=== PATIENT | male | born 1950 | race Caucasian/White ===

== ENCOUNTER 2020-08-24 15:52 | Outpatient (CLI) | payer BC, OTHER, SELFPAY ==
--- NOTE | ~2020-08-24 | CT_ITS ---
EXAMINATION: CT LE LT wo con DATE: 08/24/2020 16:41 INDICATION: Unilateral primary osteoarthritis of the left knee with left knee pain TECHNIQUE: High resolution computed tomography (CT) of the left lower limb from the hip through the f oot was performed without intravenous contrast. Automated exposure control and iterative reconstructi on technique were employed. Automated exposure control and iterative reconstruction technique were em ployed. The dose-length product was 1731.80 mGy-cm. COMPARISON: None FINDINGS: Alignment is normal. No fractures. Mild osteoarthritis at the left hip with small marginal osteophyte s about the acetabulum. No left hip joint effusion. Small bone island at the left femoral head. There is moderate joint space narrowing without weightbearing at the medial compartment of the left knee. There appears to be early remodeling along the medial side of the medial tibial plateau and at the me dial side of the anterior to central weightbearing medial femoral condyle with associated subarticula r sclerosis and mild cystic changes suggesting a greater degree of joint space narrowing and apparent . Additional osteoarthritis with small to moderate-sized marginal osteophytes in the lateral and pinon llofemoral compartments with additional mild joint space narrowing at the patellofemoral compartment. Small left knee joint effusion. Subcutaneous varicosities along the medial aspect of the distal thig h, knee and calf. Additional mild polyarticular osteoarthritis at the left foot and ankle. There are cystic change at the posterior medial aspect of the lateral malleolus near the footplate of the poste rior inferior tibiofibular ligament. No ankle joint effusion. Small amount of scattered atherosclerot ic calcification is along the arteries of the left lower limb. Musculature in the left lower limb is unremarkable. No pathologically enlarged left pelvic or inguinal lymphadenopathy. IMPRESSION: 1. Severe medial compartment predominant tricompartmental osteoarthritis at the left knee. Reviewed, dictated and finalized at location A.
[2020-08-24 16:32] LABS: Hematocrit 44.4 % (42.0-52.0); Hemoglobin 15.4 g/dL (14.0-18.0)
[2020-08-24 16:50] LABS: Albumin Level 4.3 g/dL (3.5-5.1); Creatine Kinase 185 U/L (55-170); Glucose 99 mg/dL (75-110)
[2020-08-24 17:25] LABS: Urine Cotinine NEGATIVE
[2020-08-24 18:17] LABS: Hemoglobin A1C 6.2 % (<5.7)
[2020-08-25 11:32] LABS: Estimated Glomerular Filt Rate > 60
== END 2020-08-24 15:53 | disposition home or self-care (01) ==
LOC: ANHIMG 15:54
PROVIDERS: PCP Student in an Organized Health Care Education/Training Program; Visit Provider Orthopaedic Surgery
DX: M17.12 Unilateral primary osteoarthritis, left knee (principal); Z01.818 Encounter for other preprocedural examination
CPT/HCPCS: 73700; 80307; 82040; 82550; 82565; 82947; 83036; 85014; 85018

== ENCOUNTER 2020-10-02 11:13 | Outpatient (CLI) | payer BC, OTHER, SELFPAY ==
--- NOTE | 2020-10-02 12:37 | ECG_ITS ---
Measurements Intervals [place] Rate: 54 P: 38 ND: 148 QRS: 31 QRSD: 97 T: 11 QT: 386 QTc: 369 Interpretive Statements SINUS BRADYCARDIA DELAYED PRECORDIAL R/S TRANSITION BORDERLINE ECG Electronically Signed On 10-02-2020 12:51:22 CDT by Pavan Shaffer D.O.
[2020-10-02 12:54] LABS: Basophils Absolute Auto 0.1 K/mm3 (0.0-0.1); Basophils Percent Auto 0.5 % (0.2-1.2); Eosinophils Absolute Auto 0.4 K/mm3 (0-0.3); Eosinophils Percent Auto 3.6 % (0-4.4); Hematocrit 46.6 % (42.0-52.0); Hemoglobin 15.8 g/dL (14.0-18.0); Immature Granulocyte Absolute 0.14 K/mm3 (0.00-0.031); Immature Granulocyte Percent A 1.4 % (0-0.5); Lymphocytes Absolute Auto 2.16 K/mm3 (0.9-3.2); Lymphocytes Percent Auto 21.1 % (18.3-44.2); Mean Corpuscular HGB Conc 33.9 g/dl (32-36); Mean Corpuscular Volume 94.3 fl (80-100); Mean Platelet Volume 10.1 fl (7.4-10.4); Monocytes Absolute Auto 0.8 K/mm3 (0.1-0.6); Monocytes Percent Auto 7.3 % (2.6-8.5); Neutrophils Absolute Auto 6.8 K/mm3 (1.3-6.7); Neutrophils Percent Auto 66.1 % (45.5-73.1); Platelet Count Result 196 k/mm3 (150-375); Red Blood Count 4.94 M/mm3 (4.6-6.20); White Blood Count 10.3 K/mm3 (4.5-10.0)
== END 2020-10-02 11:14 | disposition home or self-care (01) ==
LOC: ANHSURGERY 11:18
PROVIDERS: PCP Student in an Organized Health Care Education/Training Program; Visit Provider Orthopaedic Surgery
DX: M17.12 Unilateral primary osteoarthritis, left knee (principal); Z01.818 Encounter for other preprocedural examination; R94.31 Abnormal electrocardiogram [ECG] [EKG]
CPT/HCPCS: 36415; 85025; 87081; 93005

== ENCOUNTER 2020-10-19 00:04 | Day surgery (SDC) | payer BC, OTHER, SELFPAY ==
[2020-10-02 11:53] VITALS: BP 155/82; PULSE 86; RESP 18; TEMP 36.6; O2SAT 95; BMI 33.0
[2020-10-19] VITALS (14 sets, daily range): BP systolic 78–138; BP diastolic 47–81; PULSE 82–103; RESP 10–20; TEMP 35.6–36.9; O2SAT 92–97
--- NOTE | ~2020-10-19 | XR_ITS ---
EXAMINATION: XR knee LT 2V DATE: 10/19/2020 11:08 INDICATION: Postoperative evaluation following left total knee arthroplasty. TECHNIQUE: Anteroposterior and lateral views of the left knee were obtained. COMPARISON: 12/04/2016 FINDINGS: Left total knee arthroplasty with patellar resurfacing appears well seated and in near anatomic align ment. Again seen is a normal variant bipartite patella with small superolateral accessory apophyseal center No fractures identified. Expected postoperative subcutaneous and intra-articular gas. IMPRESSION: 1. Left total knee arthroplasty, negative for postoperative purposes. Reviewed, dictated and finalized at location A.
[2020-10-19] MEDS: ACETAMINOPHEN 500 MG TABLET 1000 MG PO (06:24)
[2020-10-19] MEDS: LACTATED RINGERS 1,000 ML 30 ML IV CONT ×3 (06:30→11:19)
[2020-10-19] MEDS: TRANEXAMIC ACID 1,000MG/ISO100 1,000 MG/100 ML BAG 200 MG IVPB (06:35)
--- NOTE | 2020-10-19 07:03 | P.PNAN_ITS ---
Anes - Initial Pre Proc Eval Procedure: Operation Date: 10/19/20 07:30 Proposed Procedures p Left Custom Total Knee Arthroplasty - Khalif Del Valle MD Date/Time: 10/19/20 07:03 Surgeon: Khalif Del Valle MD Pre Op Diagnosis: primary OA left knee Patient Data Age: 70 Gender: M Height: 1.68 m Weight: 92.8 kg Last Vital Signs Temp 36.6 C 10/02/20 11:53 Pulse 86 10/02/20 11:53 Resp 18 10/02/20 11:53 BP 155/82 H 10/02/20 11:53 Pulse Ox 95 10/02/20 11:53 Allergies Allergy/AdvReac Type Severity Reaction Status Date / Time No Known Allergies Allergy Verified 10/19/20 06:05 Home Medications Medication Instructions Recorded Confirmed Type alpha lipoic acid 600 mg capsule 600 mg PO DAILY 04/27/20 10/19/20 History rosuvastatin 5 mg tablet 5 mg PO DAILY 04/27/20 10/19/20 History turmeric root extract 500 mg 500 mg PO DAILY 04/27/20 10/19/20 History capsule cholecalciferol (vitamin D3) 25 50 mcg PO BID 10/02/20 10/19/20 History mcg (1,000 unit) capsule meloxicam 7.5 mg PO BID 10/02/20 10/19/20 History Patient hx anesthesia problems: none Family hx anesthesia problems: none [facility] Past Medical History Medical History (Updated 10/19/20 @ 07:03 by Bimal Burt MD) Hyperlipidemia Surgical History Surgical History (Updated 10/19/20 @ 07:03 by Bimal Burt MD) H/O inguinal hernia repair History of elbow surgery Family History Family History Father Diabetes mellitus Mother Pancreatic cancer Social History Social History Smoking status: Never smoker Substance use: never Living arrangements: alone Spiritual care concerns: No Anes - Eval Final PreProcedure Day of Procedure 10/19/20 07:03 Patient weight: obese Heart: regular rate and rhythm Lungs: clear to auscultation Airway: Mallampati scale class II Neurological: alert and oriented Last oral intake: >/= 8 hours ASA classification: II Emergent: no Anesthetic plan: proceed Anesthesia type and monitoring: general LMA and standard monitoring Informed Consent: The patient's anesthetic plan and its attendant risks and benefits were discussed with the patient/family/POA. Questions were solicited and answers provided to the satisfaction of the patient/family/POA.
--- NOTE | 2020-10-19 07:24 | WPDHPUPDATE1 ---
History and Physical Update Update Date/Time: 10/19/20 07:24 History and Physical has been reviewed, including an updated exam of the patient. There are NO changes in the patient's condition. Risks, benefits, and alternatives have been discussed and questions answered. Patient agrees to proceed with procedure.
--- NOTE | 2020-10-19 07:27 | WPDANESPNB ---
Anes - Peripheral Nerve Block Date/Time: 10/19/20 07:27 I have discussed with the patient/family/POA the placement of a peripheral nerve block for post-operative pain management, including associated risks, benefits, complications, and side effects. Alternative methods of post-operative analgesia were detailed. Questions were solicited and answers provided to the satisfaction of the patient/family/POA. Time-Out: A pre-procedural Time-Out was completed immediately before starting the procedure and confirmed: Patient Identification, Site, Procedure, Patient Position and the Availability of Requisite Equipment. Clinical Indications: Acute post-operative pain management requested by the operative surgeon. Nerve Block Insertion Note Anes-nerve block: adductor canal left Patient position: supine Skin prep: chlorhexidine Needle: 22 gauge, stimulating, insulated echogenic needle. Needle length: 80 mm Technique: ultrasound Injectate: bupivacaine 0.5% with epi 5 mcg/ml (30) and dexamethasone (mg) (8) Observations: tolerated well Complications: none Procedure start time:: 720 Procedure end time:: 726
--- NOTE | 2020-10-19 12:00 | PC.NURSE ---
This patient, Elver Stewart, was admitted to Medical Room 253-01. Patient/family oriented to hospital policies and general routines including ID bracelet, bed and alarms, visiting hours, pain management, procedures, bathroom and other care routines, personal items, smoking policy, room service/diet, and visiting hours. Information on how to activate the Rapid Response Team has been discussed. Patient/Family are encouraged to report perceived risks to care and to ask questions if they do not understand what they are told or what they should do.
[2020-10-19] MEDS: oxyCODONE HCL (*CRX) 5 MG TAB IR PO ×2 (13:23→16:24)
[2020-10-19] MEDS: ONDANSETRON INJ 4 MG/2 ML VIAL IV PUSH (13:42)
--- NOTE | 2020-10-19 16:23 | W.PM.PROC2 ---
Procedure Note - Detailed Date of Procedure 10/19/20 Pre-op Diagnosis primary OA left knee Post-op Diagnosis same Procedure Performed Total knee arthroplasty, left knee Surgeon Khalif Del Valle MD Information Technology Advisor Jeanie Begum PA-C Anesthesia general Description of Procedure Physician clinic office assistant, Jeanie Begum PA-C, required for surgery; including patient positioning, draping, tissue retraction, maintaining instrument position, cement removal, wound closure, and dressing placement. The patient was given a general anesthetic. Preoperative antibiotics were given. The limb was prepped and draped in the usual sterile fashion with a well-padded tourniquet high on the thigh. The limb was exsanguinated and the tourniquet inflated to 300 mmHg. A longitudinal incision was created just medial to the patella. A trivector approach to the knee was performed. Arthrotomy was taken down through the joint capsule. No significant releases were initially taken. The femur was exposed and the F1 jig was applied. The coring tool was used to remove the cartilage for the F2 jig to sit flush with the bone. The jig was pinned and the distal cut carefully taken. Caliper measurements confirmed appropriate bony resections according to the preoperative templated plan. The tibia was cut using the jig after removing cartilage for the Justice to sit. Proper alignment was checked with the alignment andrei. The tibia was cut through the jig. Gap balancing was performed. Cut was lightly refresh and anteromedially. Four in 1 cutting jig for the femur was applied. The anterior and chamfer cut was taken. The posterior chain for Mariama was then applied. Posterior chamber cuts were taken. Gap measurements were taken and the knee was trialed. Excellent alignment and soft tissue balancing was confirmed. Posterior cruciate ligament was recessed along the proximal tibia. Lateral retinacular release was required due to significant arthrofibrosis. Patellar tracking was excellent. The patella was cut for resurfacing. Three lug drills were drilled. Meniscal remnants were removed. Knee was copiously irrigated periodically throughout the procedure. The real implants were cemented into position. Excess cement was carefully removed. After final trialing, the real tibial inserts were placed. The wound was closed in layers with interrupted 1. Vicryl suture, 2-0 strata fix suture, 0 strata fix suture, 2-0 strata fix suture. Steri-Strips placed on the skin with the knee flexed. Sterile bulky dressing applied. The patient was brought to the recovery room in stable condition. There were no complications. Implants Conformis custom total knee. Estimated Blood Loss -200.0 Drains No Complications No immediate complications Condition stable Disposition PACU
[2020-10-19] MEDS: ASPIRIN 81 MG ENTERIC TABLET PO (16:25)
[2020-10-19] MEDS: MELOXICAM 7.5 MG TABLET PO (16:25)
[2020-10-19] MEDS: CHOLECALCIFEROL 1,000 UNITS TABLET 2000 UNITS PO (16:25)
[2020-10-19] MEDS: ceFAZolin 2 GM/D5W 50 ML 2 GM/50 ML BAG IVPB (16:26)
[2020-10-19] MEDS: SENNOSIDES 8.6 MG TABLET 17.2 MG PO (21:18)
[2020-10-19] MEDS: FAMOTIDINE 20 MG TABLET PO (21:19)
[2020-10-20] MEDS: ceFAZolin 2 GM/D5W 50 ML 2 GM/50 ML BAG IVPB ×2 (00:01→08:05)
[2020-10-20 01:42] VITALS: BP 117/61; PULSE 82; RESP 18; TEMP 37.3; O2SAT 95
[2020-10-20] MEDS: oxyCODONE HCL (*CRX) 5 MG TAB IR 10 MG PO (03:42)
[2020-10-20 05:09] VITALS: BP 118/51; PULSE 72; RESP 16; TEMP 36.3; O2SAT 97
[2020-10-20 06:20] LABS: Basophils Percent Auto 0.1 % (0.2-1.2); Hematocrit 38.8 % (42.0-52.0); Hemoglobin 13.1 g/dL (14.0-18.0); Immature Granulocyte Absolute 0.14 K/mm3 (0.00-0.031); Immature Granulocyte Percent A 0.7 % (0-0.5); Lymphocytes Percent Auto 5.4 % (18.3-44.2); Mean Corpuscular HGB Conc 33.8 g/dl (32-36); Mean Corpuscular Hemoglobin 32.7 pg (26-34); Mean Corpuscular Volume 96.8 fl (80-100); Mean Platelet Volume 10.8 fl (7.4-10.4); Monocytes Absolute Auto 1.4 K/mm3 (0.1-0.6); Neutrophils Absolute Auto 17.6 K/mm3 (1.3-6.7); Neutrophils Percent Auto 86.8 % (45.5-73.1); Platelet Count Result 177 k/mm3 (150-375); Red Blood Count 4.01 M/mm3 (4.6-6.20); Red Cell Distribution Width 11.9 % (11.5-14.5); White Blood Count 20.3 K/mm3 (4.5-10.0)
[2020-10-20 06:36] LABS: Anion Gap 6 mmol/L (8-16); Blood Urea Nitrogen 20 mg/dL (9-20); Calcium 8.6 mg/dL (8.4-10.2); Carbon Dioxide 23 mmol/L (22-30); Chloride 105 mmol/L (98-107); Estimated CRCL calculation 81 ml/min; Estimated Glomerular Filt Rate > 60; Glucose 124 mg/dL (75-110); Potassium 4.2 mmol/L (3.4-5.0); Sodium 134 mmol/L (137-145)
[2020-10-20] MEDS: oxyCODONE HCL (*CRX) 5 MG TAB IR PO (06:54)
[2020-10-20 08:04] VITALS: RESP 16; O2SAT 97
[2020-10-20] MEDS: CHOLECALCIFEROL 1,000 UNITS TABLET 2000 UNITS PO (08:04)
[2020-10-20] MEDS: ASPIRIN 81 MG ENTERIC TABLET PO (08:04)
[2020-10-20] MEDS: FAMOTIDINE 20 MG TABLET PO (08:04)
[2020-10-20] MEDS: MELOXICAM 7.5 MG TABLET PO (08:04)
--- NOTE | 2020-10-20 08:08 | P.PNAN_ITS ---
Anes - Prog Note Post-Op Date/Time: 10/20/20 08:08 Cardiovascular status: normal Respiratory status: normal Airway patency: baseline Mental status: baseline Post-Op hydration status: normal Vital Signs: Last Vital Signs Temp 97.3 F L 10/20/20 05:09 Pulse 72 10/20/20 05:09 Resp 16 10/20/20 05:09 BP 118/51 L 10/20/20 05:09 Pulse Ox 97 10/20/20 05:09 Pain Score (VAS): 6 I/O: Intake & Output 10/19/20 10/20/20 10/20/20 23:59 07:59 15:59 Intake Total 150 150 Output Total 250 500 Balance -100 -350 Laboratory Tests 10/20/20 05:18 10/20/20 05:18 10/19/20 10/20/20 10/20/20 06:26 05:18 05:18 WBC 20.3 H RBC 4.01 L Hgb 13.1 L Hct 38.8 L MCV 96.8 MCH 32.7 MCHC 33.8 RDW 11.9 Plt Count 177 MPV 10.8 H Immature Gran % (Auto) 0.7 H Neut % (Auto) 86.8 H Lymph % (Auto) 5.4 L [place] % (Auto) 7.0 Eos % (Auto) 0.0 Baso % (Auto) 0.1 L Lymph # (Auto) 1.10 [place] # (Auto) 1.4 H Eos # (Auto) 0.0 Baso # (Auto) 0.0 Abs Immat Gran (auto) 0.14 H Absolute Neuts (auto) 17.6 H Absolute Nucleated RBC 0.0 Nucleated RBC % 0.0 Sodium 134 L Potassium 4.2 Chloride 105 Carbon Dioxide 23 Anion Gap 6 L BUN 20 Creatinine 0.80 Estim Creat Clear Calc 81 Estimated GFR > 60 Glucose 124 H Calcium 8.6 Blood Type A Positive Antibody Screen Negative Post-procedural complaints: none Patient Feedback: Patient satisfied with anesthetic care. Other Findings: pt states peripheral nerve block seemed to wear off early this morning. pain to patellar region rated 6/10. states he received oral pain medication and pain has since disippated to what it was when he still had the block. pt states pain management adequate
--- NOTE | 2020-10-20 08:23 | PM.DS ---
DS: Admitting Diagnosis Admitting Diagnosis Admitting Diagnosis: OA knee Left DS: Discharge Diagnosis Discharge Diagnosis (1) Status post total left knee replacement: Code(s): Z96.652 - Presence of left artificial knee joint Status: Acute Assessment and Plan: Postop day 1: Left total knee arthroplasty. Patient tolerated procedure well. No complications. Pain manageable with pain medication. No numbness or tingling. We had a lengthy discussion regarding postoperative wound care, limitations, expectations, and exercises. Patient shows good understanding. He has had initial physical therapy and is tolerating it well. DVT prophylaxis: 81 mg baby aspirin b.i.d. for 14 days. Pain medication: Percocet. Patient has followup appointment with Dr. Del Valle in 3 weeks. DS: Summary Hospital Course Reason for hospitalization: Left Total knee arthroplasty Hospital Course: Patient tolerated procedure well. Has had initial PT/OT. Status at Discharge Functional status at discharge: uses cane/walker Overall status at discharge: patient is progressing back to baseline Time Spent with Patient Time attestation: Total time spent providing and/or coordinating discharge services: Exam Narrative: Exam Narrative: Overweight 70 y/o male. Resting comfortably in bed. Alert and oriented x3. No acute distress. Wearing compression socks bilaterally. Dressing intact with no drainage. Moderate swelling. No ecchymosis. No erythema. No hematoma. Range of motion limited due to pain. Calf nontender. Neurologic status intact. No varicosities. Distal pulses palpable. DS: Data Data Completed and Pending Labs on day of discharge: Labs from last 24 hours 10/20/20 10/20/20 10/19/20 05:18 05:18 06:26 WBC 20.3 H RBC 4.01 L Hgb 13.1 L Hct 38.8 L MCV 96.8 MCH 32.7 MCHC 33.8 RDW 11.9 Plt Count 177 MPV 10.8 H Immature Gran % (Auto) 0.7 H Neut % (Auto) 86.8 H Lymph % (Auto) 5.4 L [place] % (Auto) 7.0 Eos % (Auto) 0.0 Baso % (Auto) 0.1 L Lymph # (Auto) 1.10 [place] # (Auto) 1.4 H Eos # (Auto) 0.0 Baso # (Auto) 0.0 Abs Immat Gran (auto) 0.14 H Absolute Neuts (auto) 17.6 H Absolute Nucleated RBC 0.0 Nucleated RBC % 0.0 Sodium 134 L Potassium 4.2 Chloride 105 Carbon Dioxide 23 Anion Gap 6 L BUN 20 Creatinine 0.80 Estim Creat Clear Calc 81 Estimated GFR > 60 Glucose 124 H Calcium 8.6 Blood Type A Positive Antibody Screen Negative Discharge Plan Discharge Patient Disposition: Home, Self-Care Discharge Instructions: See blue instruction sheet Follow-up/Referrals: Jeanie Begum PA [Physician [employer]] - Discharge Medications: New aspirin 81 mg tablet,delayed release (DR/EC) 81 mg PO BID 14 Days Qty: 28 RF: 0 oxycodone-acetaminophen 5-325 mg tablet 1 - 2 tablet PO Q4-6H MDD 6 PRN (Reason: pain) Qty: 30 RF: 0 Continued alpha lipoic acid 600 mg capsule 600 mg PO DAILY RF: 0 turmeric root extract 500 mg capsule 500 mg PO DAILY RF: 0 rosuvastatin 5 mg tablet 5 mg PO DAILY RF: 0 cholecalciferol (vitamin D3) 25 mcg (1,000 unit) capsule 50 mcg PO BID RF: 0 meloxicam 15 mg tablet 7.5 mg PO BID RF: 0
[2020-10-20] MEDS: ROSUVASTATIN 5 MG TABLET PO (08:32)
[2020-10-20 12:06] VITALS: O2SAT 95
== END 2020-10-20 12:05 | disposition home or self-care (01) ==
LOC: ANHSURGERY 05:53 → ANH2MED 12:13
PROVIDERS: Physician Assistant Surgical; PCP Student in an Organized Health Care Education/Training Program; Visit Provider Orthopaedic Surgery
PROC: (CPT 27447; principal; 2020-10-19 07:30)
DX: M17.12 Unilateral primary osteoarthritis, left knee (principal); E78.5 Hyperlipidemia, unspecified; E66.9 Obesity, unspecified; Z68.33 Body mass index [BMI] 33.0-33.9, adult; G89.18 Other acute postprocedural pain
CPT/HCPCS: 27447; 64447; 36415; 73560; 80048; 85025; 86850; 86900; 86901; 97110; 97116; 97161; 97165; 97530; 97535; A9270; C1713; J0131; J0171; J0690; J1100; J1170; J1885; J2250; J2270; J2405; J2795; J3010; J7120

== ENCOUNTER 2021-02-27 08:11 | Outpatient (CLI) | payer BC, OTHER, MEDICARE, SELFPAY ==
--- NOTE | ~2021-02-27 | CT_ITS ---
EXAMINATION: CT LE RT wo con DATE: 02/27/2021 09:02 INDICATION: Unilateral primary osteoarthritis of right knee. TECHNIQUE: Computed tomography (CT) of the right lower limb was performed without intravenous contras t. Automated exposure control and iterative reconstruction technique were employed. The dose-length p roduct was 1786.80 mGy-cm. COMPARISON: Right knee radiographs 05/22/2020 FINDINGS: Bone alignment is normal. No fracture. There is mild right hip osteoarthritis. The patella is bipartite. There is moderate osteoarthritis of medial compartment of the knee and mild osteoarthri tis of lateral and patellofemoral compartments. There is a small knee joint effusion. There are loose bodies in the knee joint. There is a large Mohan's cyst. The prostate is moderately enlarged. IMPRESSION: 1. Moderate right knee osteoarthrosis. 2. Small right knee joint effusion with loose bodies. 3. Large right-sided Mohan's cyst. 4. Mild right hip osteoarthritis. Reviewed, dictated and finalized at location A. INE SEWER
== END 2021-02-27 08:12 | disposition home or self-care (01) ==
LOC: ANHIMG 08:19
PROVIDERS: PCP Student in an Organized Health Care Education/Training Program; Visit Provider Orthopaedic Surgery
DX: M17.11 Unilateral primary osteoarthritis, right knee (principal); M71.21 Synovial cyst of popliteal space [Baker], right knee; M16.11 Unilateral primary osteoarthritis, right hip; M25.461 Effusion, right knee
CPT/HCPCS: 73700

== ENCOUNTER 2021-04-02 09:36 | Outpatient (CLI) | payer BC, OTHER, MEDICARE, SELFPAY ==
[2021-04-02 10:26] LABS: Hematocrit 45.3 % (42.0-52.0); Hemoglobin 15.9 g/dL (14.0-18.0)
--- NOTE | 2021-04-02 10:30 | ECG_ITS ---
Measurements Intervals [place] Rate: 58 P: 57 ID: [id number] QRS: 73 QRSD: 96 T: 36 QT: 382 QTc: 378 Interpretive Statements SINUS BRADYCARDIA BORDERLINE ECG Electronically Signed On 04-02-2021 10:59:04 HHA by Pavan Shaffer D.O.
[2021-04-02 10:32] LABS: Albumin Level 4.4 g/dL (3.5-5.1); Estimated Glomerular Filt Rate > 60; Glucose 137 mg/dL (65-110)
== END 2021-04-02 09:37 | disposition home or self-care (01) ==
PROVIDERS: PCP Student in an Organized Health Care Education/Training Program; Visit Provider Orthopaedic Surgery
DX: E78.5 Hyperlipidemia, unspecified (principal); M17.11 Unilateral primary osteoarthritis, right knee; Z01.818 Encounter for other preprocedural examination; R94.31 Abnormal electrocardiogram [ECG] [EKG]
CPT/HCPCS: 36415; 82040; 82565; 82947; 85014; 85018; 93005

== ENCOUNTER 2021-05-31 08:46 | Outpatient (CLI) | payer BC, MEDICARE, OTHER, SELFPAY ==
[2021-05-31 09:48] LABS: Basophils Absolute Auto 0.1 K/mm3 (0.0-0.1); Basophils Percent Auto 0.9 % (0.2-1.2); Eosinophils Absolute Auto 0.4 K/mm3 (0-0.3); Eosinophils Percent Auto 4.5 % (0-4.4); Hematocrit 45.5 % (42.0-52.0); Hemoglobin 16.1 g/dL (14.0-18.0); Immature Granulocyte Absolute 0.08 K/mm3 (0.00-0.031); Lymphocytes Absolute Auto 1.47 K/mm3 (0.9-3.2); Lymphocytes Percent Auto 18.2 % (18.3-44.2); Mean Corpuscular HGB Conc 35.4 g/dl (32-36); Mean Corpuscular Hemoglobin 32.7 pg (26-34); Mean Corpuscular Volume 92.5 fl (80-100); Monocytes Absolute Auto 0.6 K/mm3 (0.1-0.6); Monocytes Percent Auto 6.9 % (2.6-8.5); Neutrophils Absolute Auto 5.5 K/mm3 (1.3-6.7); Neutrophils Percent Auto 68.5 % (45.5-73.1); Platelet Count Result 193 k/mm3 (150-375); Red Blood Count 4.92 M/mm3 (4.6-6.20); Red Cell Distribution Width 11.9 % (11.5-14.5); White Blood Count 8.1 K/mm3 (4.5-10.0)
[2021-05-31 09:56] LABS: Albumin Level 4.3 g/dL (3.5-5.1); Estimated Glomerular Filt Rate > 60; Glucose 161 mg/dL (65-110); Urine Cotinine NEGATIVE
[2021-05-31 10:06] LABS: Hemoglobin A1C 6.2 % (<5.7)
== END 2021-05-31 08:47 | disposition home or self-care (01) ==
LOC: ANHSURGERY 08:51
PROVIDERS: PCP Student in an Organized Health Care Education/Training Program; Visit Provider Orthopaedic Surgery
DX: M17.11 Unilateral primary osteoarthritis, right knee (principal); Z01.818 Encounter for other preprocedural examination
CPT/HCPCS: 80307; 82040; 82565; 82947; 83036; 85025; 87081

== ENCOUNTER 2021-06-20 00:23 | Day surgery (SDC) | payer BC, MEDICARE, OTHER, SELFPAY ==
--- NOTE | 2021-05-31 08:50 | PC.NURSE ---
Addendum entered by Elizabeth Prather RN 06/18/21 14:57: PT INFORMED OF DATE CHANGE FOR SURGERY - UNDERSTANDING VOICED TO ARRIVE @ 0600 ON 06/20/21 Original Note: Report to the Outpatient Waiting Room, entrance under the green pavilion located off [facility], at time _0600_ on date _06/19/21_. OR Time: _0730_. - You will be asked a series of questions to screen for COVID 19 for your protection. - A mask is required within the hospital. - No visitors are allowed at this time. Preoperative COVID Testing Requirements: Patients may have clear liquids (water, carbonated beverages, clear teas, apple juice) until 3 hours prior to surgery (0430 AM) with a maximum of 20 ounces. - No food from midnight until time of surgery Take the following medications with a SIP of water the morning of surgery: _TYLENOL IF NEED _ Medications to discontinue per DR. QUINONES - _IBUPROFEN 7 DAYS PRIOR TO SURGERY, LAST DOSE TO BE TAKEN ON 06/11/21_ Medications to discontinue per ANESTHESIA - _ ALL VITAMINS AND SUPPLEMENTS 3 DAYS PRIOR TO SURGERY, LAST DOSE TO BE TAKEN ON 06/15/21_ Please no deodorant, or body powder the day of surgery. No jewelry (including any body piercings) or valuables the day of surgery, leave them at home. Please take a shower or bath the night before, or the morning of, surgery with an antibacterial soap. Wear comfortable, loose fitting clothing. - Jewelry must be removed prior to entering the operating room. Rings and piercings that are not removed may be cut off. - The hospital will not accept responsibility for valuables. - Please leave all valuables, including medications, at home the day of surgery. If you are going home after surgery, a licensed wrecking car driver must drive you home. - NO public transportation without another adult. - We recommend that an adult stay with you for 24 hours following discharge. - We also recommend that you do not drive, make important decision, drink alcoholic beverages, or take any drugs that were not prescribed by your health care provider for at least 24 hours after your discharge time. Follow any additional instructions given to you from DR. QUINONES. Instructions given to ____PT and asked if any additional questions and then verbalized understanding. Patient advised to call surgeon office or pre surgery nurse liaisonHONG [phone] if any additional questions.
[2021-05-31 09:11] VITALS: BP 150/70; PULSE 70; RESP 20; TEMP 36.8; O2SAT 97; BMI 33.7
--- NOTE | 2021-06-18 09:32 | P.PNAN_ITS ---
Anes - Initial Pre Proc Eval Procedure: Operation Date: 06/19/21 07:30 Proposed Procedures p Conformis Custom Right Total Knee Arthroplasty - Khalif Del Valle MD Date/Time: 06/18/21 09:32 Surgeon: Khalif Del Valle MD Pre Op Diagnosis: primary oa right knee Patient Data Age: 71 Gender: M Height: 1.68 m Weight: 94.8 kg Last Vital Signs Temp 36.8 C 05/31/21 09:11 Pulse 70 05/31/21 09:11 Resp 20 05/31/21 09:11 BP 150/70 H 05/31/21 09:11 Pulse Ox 97 05/31/21 09:11 Allergies Allergy/AdvReac Type Severity Reaction Status Date / Time No Known Allergies Allergy Verified 06/20/21 06:26 Home Medications Medication Instructions Recorded Confirmed Type alpha lipoic acid 600 mg capsule 600 mg PO DAILY 04/27/20 06/20/21 History rosuvastatin 5 mg tablet 5 mg PO HS 04/27/20 06/20/21 History turmeric root extract 500 mg 500 mg PO DAILY 04/27/20 06/20/21 History capsule cholecalciferol (vitamin D3) 25 50 mcg PO BID 10/02/20 06/20/21 History mcg (1,000 unit) capsule ibuprofen 800 mg PO HS PRN 05/31/21 06/20/21 History Patient hx anesthesia problems: none Family hx anesthesia problems: none Results Review: All pre-operative results and documents have been reviewed as part of the pre-operative evaluation. [facility] Past Medical History Medical History Hyperlipidemia Surgical History Surgical History H/O inguinal hernia repair History of elbow surgery History of total left knee replacement (~10/19/20) Conformis Family History Family History Father Diabetes mellitus Mother Pancreatic cancer Social History Social History Second hand tobacco smoke exposure: No Additional smoking assessment comments: PT DENIES ALL FORMS OF TOBACCO USE Alcohol intake: unknown Alcohol use details: STATES VERY RARE - COUPLE TIMES A YEAR Substance use: never Substance use type: does not use Living arrangements: alone Gender identity (if verbalized by the patient): Male Spiritual care concerns: No Anes - Eval Final PreProcedure Day of Procedure 06/18/21 09:32 Patient weight: obese Heart: regular rate and rhythm Lungs: clear to auscultation and normal air movement Airway: Mallampati scale class II Neurological: alert and oriented Last oral intake: >/= 8 hours ASA classification: II Emergent: no Anesthetic plan: proceed Anesthesia type and monitoring: general LMA and standard monitoring Results Review: All pre-operative results and documents have been reviewed as part of the pre-operative evaluation. Informed Consent: The patient's anesthetic plan and its attendant risks and benefits were discussed with the patient/family/POA. Questions were solicited and answers provided to the satisfaction of the patient/family/POA.
--- NOTE | 2021-06-18 09:33 | WPDANESPNB ---
Anes - Peripheral Nerve Block Date/Time: 06/18/21 09:33 I have discussed with the patient/family/POA the placement of a peripheral nerve block for post-operative pain management, including associated risks, benefits, complications, and side effects. Alternative methods of post-operative analgesia were detailed. Questions were solicited and answers provided to the satisfaction of the patient/family/POA. Time-Out: A pre-procedural Time-Out was completed immediately before starting the procedure and confirmed: Patient Identification, Site, Procedure, Patient Position and the Availability of Requisite Equipment. Clinical Indications: Acute post-operative pain management requested by the operative surgeon. Nerve Block Insertion Note Anes-nerve block: adductor canal right Patient position: supine Skin prep: chlorhexidine Needle: 22 gauge, stimulating, insulated echogenic needle. Needle length: 80 mm Technique: ultrasound Injectate: bupivacaine 0.5% with epi 5 mcg/ml (30cc - no epi) Observations: tolerated well Complications: none Procedure start time:: 722 Procedure end time:: 725
[2021-06-20] VITALS (13 sets, daily range): BP systolic 84–143; BP diastolic 48–80; PULSE 71–94; RESP 14–18; TEMP 36.2–36.8; O2SAT 93–96; BMI 33.0
--- NOTE | ~2021-06-20 | XR_ITS ---
EXAMINATION: XR knee RT 2V DATE: 06/20/2021 10:22 INDICATION: Right total knee arthroplasty. Postop. TECHNIQUE: 2 views of right knee were obtained. COMPARISON: Right knee radiographs 05/22/2020. FINDINGS: There is a total right knee arthroplasty without patellar resurfacing in near-anatomic alig nment. Patellas is tripartite. No fracture. There is gas in the soft tissues, consistent with recent surgery. IMPRESSION: 1. Total right knee arthroplasty in near-anatomic alignment. Reviewed, dictated and finalized at location A. RVISOR BENZENE REFINING
[2021-06-20] MEDS: ACETAMINOPHEN 500 MG TABLET 1000 MG PO (06:38)
[2021-06-20] MEDS: LACTATED RINGERS 1,000 ML 30 ML IV CONT ×2 (06:56→10:05)
[2021-06-20] MEDS: TRANEXAMIC ACID 1,000MG/ISO100 1,000 MG/100 ML BAG 200 MG IVPB (06:56)
--- NOTE | 2021-06-20 07:19 | WPDHPUPDATE1 ---
History and Physical Update Update Date/Time: 06/20/21 07:19 History and Physical has been reviewed, including an updated exam of the patient. There are NO changes in the patient's condition. Risks, benefits, and alternatives have been discussed and questions answered. Patient agrees to proceed with procedure.
[2021-06-20] MEDS: ceFAZolin 2 GM/D5W 50 ML 2 GM/50 ML BAG IVPB ×3 (07:32→22:31)
[2021-06-20] MEDS: GENTAMICIN BONE CEMENT REFOBACIN 1 EACH TOPICAL (08:09)
--- NOTE | 2021-06-20 10:55 | W.PM.PROC2 ---
Procedure Note - Detailed Date of Procedure 06/20/21 Pre-op Diagnosis primary oa right knee Post-op Diagnosis same Procedure Performed Total knee arthroplasty, right. Surgeon Khalif Del Valle MD Administrative Program Specialist Jeanie Reid PA-C Anesthesia general and regional (Subsartorial block.) Findings Custom, cemented cruciate retaining arthroplasty. Excellent bone quality. No medial release. Description of Procedure Physician construction administrative assistant, Jeanie Reid PA-C, required for surgery; including patient positioning, draping, tissue retraction, maintaining instrument position, cement removal, wound closure, and dressing placement. Preoperative antibiotics were given. The limb was prepped and draped in the usual sterile fashion with a well-padded tourniquet high on the thigh. The limb was exsanguinated and the tourniquet inflated to 300 mmHg. A longitudinal incision was created just medial to the patella. A trivector approach to the knee was performed. Arthrotomy was taken down through the joint capsule. No significant releases were initially taken. The femur was exposed and the F1 jig was applied. The coring tool was used to remove the cartilage for the F2 jig to sit flush with the bone. The jig was pinned and the distal cut carefully taken. Caliper measurements confirmed appropriate bony resections according to the preoperative templated plan. The F4 cutting jig for the femur was applied, at the standard rotation. The AP and anterior chamfer cuts were taken. The F5 jig was applied and the posterior chamfer cuts were taken. The tibia was prepared using the T1 jig, after removing cartilage for the jig contact points. Proper alignment was checked with the alignment andrei. The tibia was cut using the T1u guide. Gap balancing was performed. Gap measurements were taken and the knee was trialed. Excellent alignment and soft tissue balancing was confirmed. The posterior cruciate ligament was recessed along the proximal tibia. Meniscal remnants were removed. The trial components were assembled. Excellent range of motion and proper soft tissue balancing were confirmed throughout the full range of motion. Patellar tracking was excellent. The knee was copiously irrigated periodically throughout the procedure. The real implants were cemented into position. Excess cement was carefully removed. The wound was closed in layers with interrupted #1 Vicryl suture, 2-0 strata fix suture, 0 strata fix suture, 2-0 strata fix suture. Steri-Strips placed on the skin with the knee flexed. Sterile bulky dressing applied. The patient was brought to the recovery room in stable condition. There were no complications. Implants Conformis Custom total knee arthroplasty. Cemented. Cruciate retaining. 7B insert. Estimated Blood Loss -100.0 Tourniquet Time 80 Drains No Complications No immediate complications Condition stable Disposition PACU
--- NOTE | 2021-06-20 11:18 | ADMGEN ---
This patient, Elver Stewart, was admitted to 2 Medical Room 242-. Patient/family oriented to hospital policies and general routines including ID bracelet, bed and alarms, visiting hours, pain management, procedures, bathroom and other care routines, personal items, smoking policy, room service/diet, and visiting hours. Information on how to activate the Rapid Response Team has been discussed. Patient/Family are encouraged to report perceived risks to care and to ask questions if they do not understand what they are told or what they should do.
[2021-06-20] MEDS: SODIUM CHLORIDE 0.9% IV 1,000 ML 125 ML IV CONT (12:20)
[2021-06-20] MEDS: polyethylene glycoL 3350 17 GM POWD.PACK PO (13:53)
[2021-06-20] MEDS: FAMOTIDINE 20 MG TABLET PO ×2 (13:53→21:38)
[2021-06-20] MEDS: ASPIRIN 81 MG ENTERIC TABLET PO (16:42)
[2021-06-20] MEDS: SENNA/DOCUSATE SODIUM TABLET 2 TAB PO (16:42)
[2021-06-20] MEDS: MELOXICAM 7.5 MG TABLET PO (16:43)
[2021-06-20] MEDS: oxyCODONE HCL (*CRX) 5 MG TAB IR PO ×2 (18:50→22:30)
[2021-06-20] MEDS: ROSUVASTATIN 5 MG TABLET PO (21:38)
[2021-06-21] MEDS: oxyCODONE HCL (*CRX) 5 MG TAB IR PO ×2 (03:06→12:09)
[2021-06-21 03:38] VITALS: BP 103/57; PULSE 68; RESP 18; TEMP 36.6; O2SAT 94
[2021-06-21] MEDS: ceFAZolin 2 GM/D5W 50 ML 2 GM/50 ML BAG IVPB (06:17)
[2021-06-21] MEDS: polyethylene glycoL 3350 17 GM POWD.PACK PO (08:02)
[2021-06-21] MEDS: ASPIRIN 81 MG ENTERIC TABLET PO (08:02)
[2021-06-21] MEDS: MELOXICAM 7.5 MG TABLET PO (08:02)
[2021-06-21] MEDS: SENNA/DOCUSATE SODIUM TABLET 2 TAB PO (08:02)
[2021-06-21] MEDS: FAMOTIDINE 20 MG TABLET PO (08:02)
[2021-06-21] MEDS: oxyCODONE HCL (*CRX) 5 MG TAB IR 10 MG PO (08:02)
[2021-06-21 09:00] VITALS: BP 124/66; PULSE 70; RESP 16; TEMP 36.8; O2SAT 96
--- NOTE | 2021-06-21 09:14 | WPDANESPN ---
Anes - Prog Note Post-Op Date/Time: 06/21/21 09:14 Cardiovascular status: normal Respiratory status: normal Airway patency: baseline Mental status: baseline Post-Op hydration status: normal Vital Signs: Last Vital Signs Temp 36.6 C 06/21/21 03:38 Pulse 68 06/21/21 03:38 Resp 18 06/21/21 03:38 BP 103/57 L 06/21/21 03:38 Pulse Ox 94 06/21/21 03:38 Pain Score (VAS): 0 I/O: Intake & Output 06/20/21 06/21/21 06/21/21 23:59 07:59 15:59 Intake Total 590 1340 240 Output Total 200 200 Balance 390 1140 240 Post-procedural complaints: none Patient Feedback: Patient satisfied with anesthetic care.
[2021-06-21 13:25] VITALS: BP 129/72; PULSE 71; RESP 18; TEMP 37.1; O2SAT 96
--- NOTE | 2021-06-21 14:30 | PC.NURSE ---
On 06/21/21, the student, [Agnel Johnson], provided care and completed [facility] documentation on this patient. I have reviewed the student's documentation and agree with the findings.
== END 2021-06-21 16:20 | disposition home or self-care (01) ==
LOC: ANHSURGERY 06:10 → ANH2MED 11:11
PROVIDERS: PCP Student in an Organized Health Care Education/Training Program; Visit Provider Orthopaedic Surgery
PROC: (CPT 27447; principal; 2021-06-20 07:30)
DX: M17.11 Unilateral primary osteoarthritis, right knee (principal); M25.561 Pain in right knee; E78.5 Hyperlipidemia, unspecified; G89.18 Other acute postprocedural pain; E66.9 Obesity, unspecified; Z68.33 Body mass index [BMI] 33.0-33.9, adult
CPT/HCPCS: 64447; 27447; 36415; 73560; 86850; 86900; 86901; 97110; 97116; 97161; 97165; 97535; A9270; C1713; C1776; J0131; J0171; J0690; J1100; J1885; J2270; J2370; J2405; J2704; J2795; J3010; J7030; J7120

== ENCOUNTER 2022-10-17 21:22 | Emergency (ER) | payer MEDICARE, OTHER, SELFPAY ==
--- NOTE | ~2022-10-17 | CT_ITS ---
Non-contrast Head CT History: Dizziness Technique: Axial non-contrast imaging of the brain was performed. Dose reduction technique was used on this scan by utilizing automated exposure control and iterative reconstruction technique. The dose -length product (DLP) was 681.00 mGy-cm. Findings: There is no evidence of intracranial hemorrhage, mass lesion, or acute infarct. Brain par enchyma appears normal. The ventricles and subarachnoid spaces are normal in size. The calvarium ap pears normal. The visualized paranasal sinuses and mastoid air cells are clear. Impression: No significant abnormality seen. Reviewed, dictated and finalized at location . Impression: No significant abnormality seen.
[2022-10-17 21:22] VITALS: BP 128/88; PULSE 118; RESP 12; TEMP 36.7; O2SAT 98
--- NOTE | 2022-10-17 21:30 | ECG_ITS ---
Measurements Intervals [place] Rate: 113 P: SD: 0 QRS: 12 QRSD: 99 T: -18 QT: 336 QTc: 462 Interpretive Statements ATRIAL FIBRILLATION WITH RAPID VENTRICULAR RESPONSE LOW QRS VOLTAGE IN PRECORDIAL LEADS [QRS DEFLECTION < 1.0 mV IN CHEST LEADS] ABNORMAL ECG COMPARED TO ECG 04/02/2021 10:44:13 ATRIAL FIBRILLATION REPLACES SINUS RHYTHM Electronically Signed On 10-18-2022 17:03:28 CDT by Ede Steel M.D.
[2022-10-17] MEDS: METOCLOPRAMIDE HCL INJ 10 MG/2 ML VIAL IV PUSH (21:35)
[2022-10-17 21:53] LABS: Basophils Absolute Auto 0.1 K/mm3 (0.0-0.1); Basophils Percent Auto 0.5 % (0.2-1.2); Eosinophils Absolute Auto 0.2 K/mm3 (0-0.3); Eosinophils Percent Auto 1.6 % (0-4.4); Hematocrit 44.5 % (42.0-52.0); Hemoglobin 15.3 g/dL (14.0-18.0); Immature Granulocyte Absolute 0.12 K/mm3 (0.00-0.031); Immature Granulocyte Percent A 1.2 % (0-0.5); Lymphocytes Absolute Auto 1.16 K/mm3 (0.9-3.2); Lymphocytes Percent Auto 11.1 % (18.3-44.2); Mean Corpuscular HGB Conc 34.4 g/dl (32-36); Mean Corpuscular Hemoglobin 32.8 pg (26-34); Mean Corpuscular Volume 95.3 fl (80-100); Mean Platelet Volume 10.3 fl (7.4-10.4); Monocytes Absolute Auto 0.4 K/mm3 (0.1-0.6); Monocytes Percent Auto 4.2 % (2.6-8.5); Neutrophils Absolute Auto 8.5 K/mm3 (1.3-6.7); Neutrophils Percent Auto 81.4 % (45.5-73.1); Platelet Count Result 185 k/mm3 (150-375); Red Blood Count 4.67 M/mm3 (4.6-6.20); Red Cell Distribution Width 12.3 % (11.5-14.5); White Blood Count 10.4 K/mm3 (4.5-10.0)
[2022-10-17 22:03] LABS: Alanine Aminotransferase 30 U/L (6-50); Albumin Level 4.5 g/dL (3.5-5.1); Alkaline Phosphatase 54 U/L (38-126); Anion Gap 4 mmol/L (8-16); Aspartate Amino Transferase 30 U/L (17-59); Bilirubin,Total 0.5 mg/dL (0.2-1.3); Blood Urea Nitrogen 20 mg/dL (9-20); Calcium 8.9 mg/dL (8.4-10.2); Carbon Dioxide 26 mmol/L (22-30); Chloride 108 mmol/L (98-107); Estimated CRCL calculation 102 ml/min; Estimated Glomerular Filt Rate > 60; Glucose 198 mg/dL (65-110); Lipase 63 U/L (23-300); Potassium 3.9 mmol/L (3.4-5.0); Sodium 138 mmol/L (137-145)
--- NOTE | 2022-10-17 23:03 | ED.GENADULT ---
HPI - General Adult General Chief complaint: Nausea/Vomiting/Diarrhea Stated complaint: vomiting Time Seen by Provider: 10/17/22 21:25 History of Present Illness HPI narrative: 72-year-old male presented to the emergency department for evaluation of onset of dizziness with associated nausea and vomiting. Patient reports this morning he was at therapy for his shoulder and was doing some exercises on the floor, when he sat up he did have some dizziness. Patient states the dizziness did improve. When patient was home this afternoon he started having worsening dizziness with associated nausea and vomiting. Patient denies any falls or injuries. Patient had initially attributed this to some egg rolls that he had eaten. Patient was treated with multiple rounds of Zofran prior to arrival with minimal improvement. Related Data Home Medications Medication Instructions Recorded Confirmed alpha lipoic acid 600 mg capsule 600 mg PO DAILY 04/27/20 08/06/21 rosuvastatin 5 mg tablet 5 mg PO HS 04/27/20 08/06/21 turmeric root extract 500 mg 500 mg PO DAILY 04/27/20 08/06/21 capsule cholecalciferol (vitamin D3) 25 50 mcg PO BID 10/02/20 08/06/21 mcg (1,000 unit) capsule ibuprofen 400 mg tablet 800 mg PO HS PRN Pain 05/31/21 08/06/21 Allergies Allergy/AdvReac Type Severity Reaction Status Date / Time No Known Allergies Allergy Verified 10/17/22 21:31 Review of Systems Review of Systems: All systems reviewed & are unremarkable except as noted in HPI and below PMFSH Past Medical History Medical History (Updated 10/18/22 @ 00:50 by Austen Paredes MD) Hyperlipidemia Surgical History Surgical History (Updated 08/06/21 @ 09:32 by Herlinda Díaz MA) H/O inguinal hernia repair History of elbow surgery History of total left knee replacement (~10/19/20) Conformis History of total right knee replacement (~06/20/21) Conformis Family History Family History Father Diabetes mellitus Mother Pancreatic cancer Social History Social History Smoking status: Never smoker Second hand tobacco smoke exposure: No Additional smoking assessment comments: PT DENIES ALL FORMS OF TOBACCO USE Alcohol intake: unknown Alcohol use details: STATES VERY RARE - COUPLE TIMES A YEAR Substance use: never Substance use type: does not use Living arrangements: alone Gender identity (if verbalized by the patient): Male Spiritual care concerns: No Exam Narrative: APPEARANCE: Well appearing, no pain, no distress, well-nourished. HEAD: normocephalic, atraumatic. EYES: PERRLA/EOMI, conjunctivae clear. NOSE: Normal no drainage EARS:TMS clear with good light reflex. THROAT: Pharynx clear, no exudate. NECK: Supple. No adenopathy, no masses. RESPIRATORY: Airway patent, respirations nonlabored. Clear to auscultation bilaterally, no rales, rhonchi, wheezing. CARDIOVASCULAR: Regular rate and rhythm without murmurs rubs or gallops. ABDOMINAL: Soft, nontender, nondistended, normal bowel sounds MUSCULOSKELETAL: Moves all extremities. Strength/ROM intact, No edema, No calf tenderness. NEURO: Alert. Cranial nerves II through XII intact. Grossly intact. No ataxia, no drift, dizziness was induced with head movement. Dizziness improved with closing his eyes. SKIN: Warm, dry. Normal Color Course Course Emergency Course: 72-year-old male presented ED for evaluation of vertigo with associated nausea and vomiting. Patient did feel his emesis was improved with medications. Patient is also being treated with meclizine and having a head CT. Patient family are updated on the suspected diagnosis of vertigo and work-up. All questions concerns were addressed Patient did feel improved with the meclizine. Patient was afebrile but does have a leukocytosis of 10.4. Patient denied any urinary symptoms and patient had no urina
[2022-10-17 23:20] LABS: Appearance Urine Cloudy (Clear); Bacteria Urine None Seen /hpf; Bilirubin Urine Negative (Negative); Blood Urine Negative (Negative); Color Urine Yellow (Yellow); Glucose Urine UA Negative (Negative); Ketones Urine 1+ mg/dL (Negative); Leukocyte Esterase Ur 2+ LEU/UL (Negative); Nitrate Urine Negative (Negative); Non Pathogenic Casts 0-2; Protein Urine 1+ mg/dL (Negative); RBC Urine 0-2 /hpf (0-2); Specific Grav Ur 1.026 (1.001-1.035); Squamous Epithelial Cell Urine None seen /hpf (Few); Urobilinogen Urine 0.2 mg/dL (<2.0); WBC Urine >100 /hpf; pH Urine 5.5 (5.0-9.0)
[2022-10-17] MEDS: MECLIZINE HCL 25 MG TABLET PO (23:23)
[2022-10-17 23:32] LABS: Add Urine Microscopic? YES
[2022-10-18 00:57] VITALS: BP 123/73; PULSE 121; RESP 19; O2SAT 97
== END 2022-10-18 00:57 | disposition home or self-care (01) ==
PROVIDERS: Emergency Provider Emergency Medicine; PCP Student in an Organized Health Care Education/Training Program
DX: R42 Dizziness and giddiness (principal); R82.998 Other abnormal findings in urine; E78.5 Hyperlipidemia, unspecified; Z96.653 Presence of artificial knee joint, bilateral; I48.91 Unspecified atrial fibrillation
CPT/HCPCS: 36415; 70450; 80053; 81001; 83690; 85025; 87086; 93005; 96374; 99284; A9270; J2765

== ENCOUNTER 2024-02-20 07:50 | Emergency (ER) | payer MEDICARE, OTHER, SELFPAY ==
[2024-02-20] VITALS (17 sets, daily range): BP systolic 121–156; BP diastolic 65–95; PULSE 54–74; RESP 12–21; TEMP 36.1; O2SAT 92–99
--- NOTE | ~2024-02-20 | XR_ITS ---
EXAMINATION: XR chest 2V DATE: 02/20/2024 08:57 INDICATION: Dizziness. TECHNIQUE: Frontal and lateral views of the chest were obtained. COMPARISON: Chest 2 views 03/20/2012 FINDINGS: There is mild atelectasis in the lower lung zones. No pleural effusion or pneumothorax. The heart size is normal. IMPRESSION: 1. Mild atelectasis in the lower lung zones. Reviewed, dictated and finalized at location B.
--- NOTE | ~2024-02-20 | CT_ITS ---
EXAMINATION: CT brain wo con DATE: 02/20/2024 09:53 INDICATION: Headache and dizziness TECHNIQUE: Computed tomography (CT) of the head was performed without intravenous contrast. Sagittal and coronal reconstructions were performed. The mA was adjusted according to patient size. Iterative reconstruction technique was employed. The dose-length product was 605.33 mGy-cm. COMPARISON: head CT dated 10/17/2022 FINDINGS: No acute intracranial hemorrhage, acute infarction or abnormal extra axial fluid collection. There is mild scattered white matter hypoattenuation consistent with chronic small vessel ischemic disease. Ventricles are normal and symmetric. No mass/mass effect. Mild mucosal thickening in the bilateral et hmoid and sphenoid sinuses. The orbits and mastoid air cells are normal. IMPRESSION: 1. Normal aging brain. No acute intracranial process. Reviewed, dictated and finalized at location A.
--- NOTE | 2024-02-20 07:56 | ECG_ITS ---
Test Date: 2024-02-20 07:59:46 Measurements Intervals [place] Rate: 61 P: 44 WV: 174 QRS: 40 QRSD: 101 T: 15 QT: 416 QTc: 420 Interpretive Statements SINUS RHYTHM NORMAL ECG No previous ECG available for comparison Electronically Signed On 02-20-2024 08:09:34 CDT by Pavan Shaffer D.O.
[2024-02-20 08:23] LABS: Basophils Absolute Auto 0.1 K/mm3 (0.0-0.1); Basophils Percent Auto 0.7 % (0.2-1.2); Eosinophils Absolute Auto 0.3 K/mm3 (0-0.3); Eosinophils Percent Auto 3.6 % (0-4.4); Hematocrit 45.6 % (42.0-52.0); Immature Granulocyte Absolute 0.15 K/mm3 (0.00-0.031); Immature Granulocyte Percent A 1.6 % (0-0.5); Lymphocytes Absolute Auto 1.38 K/mm3 (0.9-3.2); Lymphocytes Percent Auto 14.4 % (18.3-44.2); Mean Corpuscular HGB Conc 35.1 g/dl (32-36); Mean Corpuscular Hemoglobin 33.3 pg (26-34); Mean Platelet Volume 10.3 fl (7.4-10.4); Monocytes Absolute Auto 0.7 K/mm3 (0.1-0.6); Monocytes Percent Auto 6.9 % (2.6-8.5); Neutrophils Percent Auto 72.8 % (45.5-73.1); Platelet Count Result 178 k/mm3 (150-375); Red Cell Distribution Width 12.2 % (11.5-14.5); White Blood Count 9.6 K/mm3 (4.5-10.0)
[2024-02-20 08:35] LABS: Alanine Aminotransferase 19 U/L (6-50); Albumin Level 4.1 g/dL (3.5-5.1); Alkaline Phosphatase 45 U/L (38-126); Anion Gap 8 mmol/L (4-12); Aspartate Amino Transferase 26 U/L (17-59); Bilirubin,Total 0.9 mg/dL (0.2-1.3); Blood Urea Nitrogen 18 mg/dL (9-20); Calcium 8.7 mg/dL (8.4-10.2); Carbon Dioxide 26 mmol/L (22-30); Chloride 103 mmol/L (98-107); Estimated CRCL calculation 99 ml/min; Estimated Glomerular Filt Rate > 60; Glucose 141 mg/dL (65-110); Potassium 3.9 mmol/L (3.4-5.0); Sodium 137 mmol/L (137-145)
--- NOTE | 2024-02-20 09:07 | ED_ITS ---
HPI - Dizziness General Chief Complaint: Dizziness Stated Complaint: Dizzy Time Seen by Provider: 02/20/24 09:06 Source: patient Mode of arrival: EMS Limitations: no limitations History of Present Illness HPI Narrative: This is a 74-year-old male that presents to the emergency department for dizziness. Ongoing since last night. Reports associated nausea, vomiting and headache. Reports some improvement after meclizine and Zofran. Denies visual changes, focal numbness or weakness. Related Data Home Medications Medication Instructions Recorded Confirmed alpha lipoic acid 600 mg capsule 600 mg PO DAILY 04/27/20 08/06/21 rosuvastatin 5 mg tablet 5 mg PO HS 04/27/20 08/06/21 turmeric root extract 500 mg 500 mg PO DAILY 04/27/20 08/06/21 capsule cholecalciferol (vitamin D3) 25 50 mcg PO BID 10/02/20 08/06/21 mcg (1,000 unit) capsule ibuprofen 400 mg tablet 800 mg PO HS PRN Pain 05/31/21 08/06/21 Allergies Allergy/AdvReac Type Severity Reaction Status Date / Time No Known Allergies Allergy Verified 10/17/22 21:31 Review of Systems Review of Systems: CONSTITUTIONAL: Denies fever EYES: Denies visual changes CARDIOVASCULAR: Denies chest pain, palpitations RESPIRATORY: Denies dyspnea. GASTROINTESTINAL: Reports nausea, vomiting NEUROLOGIC: Reports headache. Denies numbness, or weakness. All systems reviewed & are unremarkable except as noted in HPI and below PMFSH Past Medical History Medical History (Updated 02/20/24 @ 12:20 by Crys Turner PA-C) Hyperlipidemia Surgical History Surgical History (Updated 08/06/21 @ 09:32 by Herlinda Díaz CMA) H/O inguinal hernia repair History of elbow surgery History of total left knee replacement (~10/19/20) Conformis History of total right knee replacement (~06/20/21) Conformis Family History Family History Father Diabetes mellitus Mother Pancreatic cancer Social History Social History Smoking status: Never smoker Second hand tobacco smoke exposure: No Additional smoking assessment comments: PT DENIES ALL FORMS OF TOBACCO USE Alcohol intake: unknown Alcohol use details: STATES VERY RARE - COUPLE TIMES A YEAR Substance use: never Substance use type: does not use Living arrangements: alone Gender identity (if verbalized by the patient): Male Spiritual care concerns: No Exam Narrative: GENERAL: Well-appearing, well-nourished, and in no acute distress. HEAD: Normocephalic, atraumatic. EYES: PERRLA and EOMI. ENT: Nares clear, no rhinorrhea or epistaxis. Mucous membranes moist. Oropharynx without tonsillar hypertrophy exudate or other lesions. Bilateral TMs pearly mas non-bulging NECK: Supple. No adenopathy or masses. No JVD CHEST: Clear to auscultation. No respiratory distress. No wheezes rales or rhonchi HEART: Regular rate and rhythm. No murmur heard. Normal peripheral pulses. EXTREMITIES: Normal range of motion. No edema. SKIN: Warm, dry, no rash. NEURO: No focal deficits. Alert and oriented x3. Cranial nerves 2-12 grossly intact. Normal finger to nose PSYCH: Normal mood and affect Course Course Emergency Course: patient updated on his workup. Reports relief after IV fluids, meclizine and Zofran. Ambulatory with a steady gait Vital Signs Vital signs: Vital Signs Temperature 97.0 F L 02/20/24 07:57 Pulse Rate 67 02/20/24 07:57 Respiratory Rate 16 02/20/24 07:57 Blood Pressure 156/95 H 02/20/24 07:57 Pulse Oximetry 97 02/20/24 07:57 Temperature 97.0 F L 02/20/24 07:57 Pulse Rate 56 L 02/20/24 11:45 Respiratory Rate 17 02/20/24 11:45 Blood Pressure 130/79 02/20/24 11:31 Pulse Oximetry 96 02/20/24 11:45 MDM - Dizziness MDM Narrative Medical decision making narrative: patient presents to the emergency department for an episode of dizziness. Ongoing since last night. Previous history of similar episodes. He is afebrile and nontoxic appearing. His vitals are stable. He is neurologically intact. Cbc without leukocytosis. Metabolic panel without concerning findings. Chest x-ray shows mild atelectasis. CT brain is normal. patient updated on his workup. Reports relief after IV fluids, meclizine and Zofran. Ambulatory with a steady gait. He is to follow up with primary provider. He was given warnings to return to the ER Differential Diagnosis Differential diagnosis: Likely adverse reaction to drug, benign paroxysmal positional vertigo, orthostatic hypotension, vertebral basilar insufficiency and cerebrovascular accident Lab Data Attestation: I reviewed the patient's lab results. 02/20/24 08:12 02/20/24 08:12 Labs: Lab Results 02/20/24 Range/Units 08:12 WBC 9.6 (4.5-10.0) K/mm3 RBC 4.80 (4.6-6.20) M/mm3 Hgb 16.0 (14.0-18.0) g/dL Hct 45.6 (42.0-52.0) % MCV 95.0 (80-100) fl MCH 33.3 (26-34) pg MCHC 35.1 (32-36) g/dl RDW 12.2 (11.5-14.5) % Plt Count 178 (150-375) k/mm3 MPV 10.3 (7.4-10.4) fl Immature Gran % (Auto) 1.6 H (0-0.5) % Neut % (Auto) 72.8 (45.5-73.1) % Lymph % (Auto) 14.4 L (18.3-44.2) % [place] % (Auto) 6.9 (2.6-8.5) % Eos % (Auto) 3.6 (0-4.4) % Baso % (Auto) 0.7 (0.2-1.2) % Lymph # (Auto) 1.38 (0.9-3.2) K/mm3 [place] # (Auto) 0.7 H (0.1-0.6) K/mm3 Eos # (Auto) 0.3 (0-0.3) K/mm3 Baso # (Auto) 0.1 (0.0-0.1) K/mm3 Abs Immat Gran (auto) 0.15 H (0.00-0.031) K/mm3 Absolute Neuts (auto) 7.0 H (1.3-6.7) K/mm3 Absolute Nucleated RBC 0.000 (0.0-0.012) K/mm3 Nucleated RBC % 0.0 (0.0-0.2) % Sodium 137 (137-145) mmol/L Potassium 3.9 (3.4-5.0) mmol/L Chloride 103 (98-107) mmol/L Carbon Dioxide 26 (22-30) mmol/L Anion Gap 8 (4-12) mmol/L BUN 18 (9-20) mg/dL Creatinine 0.60 L (0.7-1.3) mg/dL Estim Creat Clear Calc 99 ml/min Estimated GFR > 60 (59 - ) Glucose 141 H (65-110) mg/dL Calcium 8.7 (8.4-10.2) mg/dL Total Bilirubin 0.9 (0.2-1.3) mg/dL AST 26 (17-59) U/L ALT 19 (6-50) U/L Alkaline Phosphatase 45 (38-126) U/L Total Protein 7.0 (6.3-8.2) g/dL Albumin 4.1 (3.5-5.1) g/dL Imaging Data Radiologist's impression: ITS Impressions Chest X-Ray 02/20/24 09:01 IMPRESSION: 1. Mild atelectasis in the lower lung zones. ITS Impressions Chest X-Ray 02/20/24 09:01 IMPRESSION: 1. Mild atelectasis in the lower lung zones. Head CT 02/20/24 09:57 IMPRESSION: 1. Normal aging brain. No acute intracranial process. ECG Data EKG #1: ECG completion date: 02/20/24 EKG Interpretation: normal rate, sinus rhythm, no ST changes and normal QT Critical Care Time Critical Care Time Critical Care Time: No Discharge Plan Discharge Clinical Impression: Dizziness Patient Disposition: Home, Self-Care Condition: Improved Instructions: Dizziness (ED) Additional Instructions: Return to the ER if you experience vision changes, numbness, weakness, or any other symptoms that are concerning to you Remain well hydrated. Stand slowly from seated position. Meclizine as needed for dizziness. Follow up with your primary care doctor Prescriptions: No Action alpha lipoic acid 600 mg capsule 600 mg PO DAILY turmeric root extract 500 mg capsule 500 mg PO DAILY rosuvastatin 5 mg tablet 5 mg PO HS cholecalciferol (vitamin D3) 25 mcg (1,000 unit) capsule 50 mcg PO BID meclizine 25 mg tablet 25 mg PO BID PRN (Reason: dizziness) Qty: 20 0RF ibuprofen 400 mg Tablet 800 mg PO HS PRN (Reason: Pain) amoxicillin 500 mg tablet 500 mg PO ONCE Qty: 4 0RF Rx Instructions: Take Four(4)Tablets one hour prior to dental procedure. Follow-up/Referrals: Janis,DO Meir [Primary Care Provider] -
[2024-02-20] MEDS: MECLIZINE HCL 25 MG TABLET PO (09:23)
[2024-02-20] MEDS: SODIUM CHLORIDE 0.9% IV 500 ML 999 ML IV CONT (09:56)
[2024-02-20] MEDS: ACETAMINOPHEN 500 MG TABLET 1000 MG PO (09:56)
== END 2024-02-20 13:04 | disposition home or self-care (01) ==
PROVIDERS: Student in an Organized Health Care Education/Training Program; Emergency Provider Physician Assistant; PCP Student in an Organized Health Care Education/Training Program
DX: R42 Dizziness and giddiness (principal); E78.5 Hyperlipidemia, unspecified; Z96.653 Presence of artificial knee joint, bilateral
CPT/HCPCS: 36415; 70450; 71046; 80053; 85025; 93005; 96360; 99284; A9270; J7040